=== PATIENT | male | born 1940 | race Caucasian/White ===

== ENCOUNTER → 2019-09-20 | Outpatient (REF) | payer MEDICARE | LOC: M LAB LCGH 12:38 | PROVIDERS: ATTEND Physician Assistant | DX: D48.4 Neoplasm of uncertain behavior of peritoneum (principal) ==

== ENCOUNTER → 2022-05-24 | Outpatient (REF) | payer MEDICARE | LOC: M SFHCDERM 17:27 | PROVIDERS: ATTEND Nurse Practitioner Family | DX: L82.1 Other seborrheic keratosis (principal) ==

== ENCOUNTER → 2023-05-20 | Outpatient (REF) | payer MEDICARE | LOC: M SFHCDERM 17:33 | PROVIDERS: ATTEND Nurse Practitioner Family | DX: L57.0 Actinic keratosis (principal) ==